=== PATIENT | female | born 1960 | race African-American/Black ===

== ENCOUNTER 2016-10-28 01:22 | Emergency (ER) | payer OTHER ==
--- NOTE | 2016-10-28 02:04 | ED Physician Documentation ---
General Adult - HISTORIAN Historian: patient, child (son) - HPI Stated Complaint: shaky, sweaty Chief Complaint: General Adult Additional Information: Four days of episodes of feeling drowsy, sweaty, hyper, all at the same time. Episodes last several minutes. Three such episodes today. The last one woke her from sleep at about 0100 tody. Had second cataract surgery OD on 10/20. On prednisolone eye gtts since. Had this same med with first cataract surgery. Has been out of Lyrica for a week; this med was initiated 3-4 months ago. Her son is concerned that she takes too many medications. She has been taking oxycodone and hydrocodone simultyaneously, unti ltwo days ago when she stopped the hydrocone. Says her blood sugars have not changed: 130-160. - ROS CONST: sweating - PAST HX Past History: hypertension, other (HLD, fibromyalgia, osteoarthritis, gout.) Other History: diabetes Type 2 Surgeries/Procedures: other (cataracts) Allergies/Adverse Reactions: Allergies Allergy/AdvReac Type Severity Reaction Status Date / Time No Known Allergies Allergy Verified 10/28/16 01:47 Home Medications: Ambulatory Orders Medication Instructions Recorded Atorvastatin Calcium [Lipitor] 40 mg PO DAILY 11/11/12 Carvedilol [Coreg] 12.5 mg PO DAILY 11/11/12 Insulin NPH/Reg [Humulin 70-30 0 unit SUBCUT DIRECTED 11/11/12 Vial] Lisinopril [Zestril] 40 mg PO DAILY 11/11/12 Meloxicam 15 mg PO DAILY 11/11/12 Metformin HCl [Glucophage Xr] 500 mg PO BID 11/11/12 Milnacipran HCl [Savella] 50 mg PO DIRECTED 11/11/12 Omeprazole [Prilosec] 20 mg PO DIRECTED 11/11/12 Sertraline HCl [Zoloft] 50 mg PO QD 11/11/12 Tramadol HCl [Rybix Odt] 50 mg PO DIRECTED 11/11/12 Allopurinol [Zyloprim] 100 mg PO QD #30 tablet 05/21/16 Methylprednisolone [Medrol] 4 mg PO DAILY #1 tab.ds.pk 05/21/16 - SOCIAL HX Smoking History: non-smoker - FAMILY HX Family History: No - VITAL SIGNS Vital Signs: Vital Signs Temp Pulse Resp BP Pulse Ox 184/88 05/21/16 14:53 - REVIEWED ASSESSMENTS Nursing Assessment Reviewed: Yes Vitals Reviewed: Yes General Adult Physical Exam - PHYSICAL EXAM GENERAL APPEARANCE: no distress EENT: eye inspection normal (left. OD photosensitive and she squints. ), ENT inspection normal NECK: normal inspection, supple RESPIRATORY: no resp distress, breath sounds normal CVS: reg rate & rhythm, heart sounds normal, no murmur RECTAL: deferred BACK: other (movements w/o pain) SKIN: warm/dry, normal color EXTREMITIES: no evidence of injury NEURO: CN's nml as tested, motor nml, sensation nml Discharge Clincal Impression: Medication adverse effect Additional Instructions: Talk to your doctors about your medication concerns, tomorrow. Home Medications: Ambulatory Orders Atorvastatin Calcium [Lipitor] 40 mg PO DAILY 11/11/12 Carvedilol [Coreg] 12.5 mg PO DAILY 11/11/12 Insulin NPH/Reg [Humulin 70-30 Vial] 0 unit SUBCUT DIRECTED 11/11/12 Lisinopril [Zestril] 40 mg PO DAILY 11/11/12 Meloxicam 15 mg PO DAILY 11/11/12 Metformin HCl [Glucophage Xr] 500 mg PO BID 11/11/12 Milnacipran HCl [Savella] 50 mg PO DIRECTED 11/11/12 Omeprazole [Prilosec] 20 mg PO DIRECTED 11/11/12 Sertraline HCl [Zoloft] 50 mg PO QD 11/11/12 Tramadol HCl [Rybix Odt] 50 mg PO DIRECTED 11/11/12 Allopurinol [Zyloprim] 100 mg PO QD #30 tablet 05/21/16 Methylprednisolone [Medrol] 4 mg PO DAILY #1 tab.ds.pk 05/21/16 Condition: Good Decision to Admit: NO Decision Time: 02:02
[2016-10-28 03:38] VITALS: BP 164/85
== END 2016-10-28 02:16 | disposition home or self-care (01) ==
LOC: ED 01:22
DX: T50.905A Adverse effect of unspecified drugs, medicaments and biological substances, initial encounter (principal); R53.1 Weakness; I10 Essential (primary) hypertension; E78.5 Hyperlipidemia, unspecified; E11.9 Type 2 diabetes mellitus without complications
CPT/HCPCS: 99282; 99283

== ENCOUNTER 2016-11-19 16:22 | Emergency (ER) | payer OTHER ==
[2016-11-19] MEDS ORDERED: DEXTROSE 50% 50 ML DISP.SYRIN IVP ONE ×3 (16:29→18:22)
[2016-11-19] MEDS: DEXTROSE 50% 50 ML DISP.SYRIN IVP ONE ×2 (16:50→17:30)
[2016-11-19 16:58] LABS: BASOPHILS % 0.1 (0.0-1.5); EOSINOPHILS % 3.2 % (0.0-6.8); LYMPHOCYTES # 0.6 # k/uL (0.6-4.0); MEAN CORPUSCULAR HEMOGLOBIN 24.8 pg (28.0-34.0); MONOCYTES # 0.2 # k/uL (0.0-0.9); NEUTROPHILS # 4.4 # k/uL (1.4-7.7)
[2016-11-19] MEDS ORDERED: DEXTROSE 5 %-0.45 % NACL 1,000 ML IV SCH (17:00)
[2016-11-19 17:18] LABS: eGFR (African) > 60; eGFR (Non-African) > 60
--- NOTE | 2016-11-19 18:13 | ED Physician Documentation ---
General Adult - HISTORIAN Historian: patient, paramedics - HPI Stated Complaint: Hypoglycemia Chief Complaint: General Adult Onset: hours Timing: worse Further Comments: yes (56 year old female patient found confused with decreased LOC by her son who was coming to fix her sink today. EMS called - BS 26 on arrival 25mg D50 IV given; BS up to 75 in route to ER. On arrival BS 38 - D50 25mg IV given and D51/2 started) - ROS CONST: no problems (Patient unable to answer all questions due to altered mental status and hypoglycemia) EYES/ENT: none CVS/RESP: none GI/: none MS/SKIN/LYMPH: none NEURO/PSYCH: denies: headache, fainting, dizziness, tingling, numbness, difficulty walking, difficulty with speech, anxiety, depression, other - PAST HX Past History: hypertension Other History: diabetes Type 2, other (morbid obesity, IDDM, HLD, OA, Gout, Fibromyalgia) Surgeries/Procedures: other (Right cataract) Allergies/Adverse Reactions: Allergies Allergy/AdvReac Type Severity Reaction Status Date / Time No Known Allergies Allergy Verified 10/28/16 01:47 Home Medications: Ambulatory Orders Medication Instructions Recorded Atorvastatin Calcium [Lipitor] 40 mg PO DAILY 11/11/12 Insulin NPH/Reg [Humulin 70-30 0 unit SUBCUT DIRECTED 11/11/12 Vial] Omeprazole [Prilosec] 20 mg PO DIRECTED 11/11/12 Allopurinol [Zyloprim] 100 mg PO QD #30 tablet 05/21/16 Allopurinol [Allopurinol] 300 mg PO BID 10/28/16 Amitriptyline HCl [Elavil] 75 mg PO HS 10/28/16 Atorvastatin Calcium [Atorvastatin 40 mg PO BID 10/28/16 Calcium] Chlorthalidone [Thalitone] 50 mg PO D 10/28/16 Losartan Potassium [Cozaar] 100 mg PO D 10/28/16 Methocarbamol [Robaxin-750] 750 mg PO Q6 10/28/16 Metoclopramide HCl [Metoclopramide 5 mg PO QID 10/28/16 HCl Odt] Moxifloxacin HCl [Vigamox] 1 drop EACHEYE BID 10/28/16 Neomy Sulf/Polymyxin B Sulfate 1 drop EACHEYE 6XDAY 10/28/16 [Neomy-Polymyxin B 40 mg/ml Amp] Omeprazole [Prilosec] 20 mg PO BID 10/28/16 Oxycodone HCl/Acetaminophen 1 tab PO Q8 PRN 10/28/16 [Oxycodone-Acetaminophen 10-325] Prednisolone Acetate [Pred Forte] 1 drop EACHEYE 6XDAY 10/28/16 Sennosides [Senna] 8.6 mg PO HS 10/28/16 Tizanidine HCl [Zanaflex] 2 mg PO Q8 10/28/16 - SOCIAL HX Smoking History: non-smoker - FAMILY HX Family History: No - VITAL SIGNS Vital Signs: Vital Signs Temp Pulse Resp BP Pulse Ox 98 F 79 20 159/67 98 11/19/16 16:25 11/19/16 16:25 11/19/16 16:25 11/19/16 16:25 11/19/16 18:00 - REVIEWED ASSESSMENTS Nursing Assessment Reviewed: Yes Vitals Reviewed: Yes Progress - Progress Progress: Old records reviewed; hyperglycemia noted >450 on last ER visit; last HGB 10.2 1655 BS up to 85, 12.5mg D50 given, speech improved, slightly slurred 1730 Patient unable to answer questions, speech slurred - BS 46 12.5mg IV D50 given, increased D51/2 to 200cc/hr 1745 Plan of care discussed with family - recommended transfer to higher level of care with PCU or ICU for close glucose monitoring. Family prefers [place]. Patient able to drink 4 oz apple juice and eat 20% of meal tray. [address] Bishop to PCU. 1825 BS 48 - 25mg D50 IV given, increased D51/2 to 350 ml/hr ED Results Lab/Radiology - Lab Results Lab Results: Lab Results 11/19/16 11/19/16 16:50 16:50 WBC 5.30 K/ul K/ul (4.00-12.00) RBC 3.72 M/ul L M/ul (3.90-5.20) Hgb 9.2 g/dL L g/dL (12.0-16.0) Hct 29.8 % L % (34.5-46.5) MCV 80.1 fl fl (80.0-100.0) MCH 24.8 pg L pg (28.0-34.0) MCHC 31.0 g/dL g/dL (30.0-36.0) RDW 16.0 % H % (11.3-14.3) Plt Count 275 K/mm3 K/mm3 (130-400) Neut % (Auto) 82.6 % H % (39.0-79.0) Lymph % (Auto) 10.7 % L % (16.0-50.0) Maverick % (Auto) 3.0 % % (0.0-11.0) Eos % (Auto) 3.2 % % (0.0-6.8) Baso % (Auto) 0.1 (0.0-1.5) Neut # 4.4 # k/uL # k/uL (1.4-7.7) Lymph # 0.6 # k/uL # k/uL (0.6-4.0) Maverick # 0.2 # k/uL # k/uL (0.0-0.9) Eos # 0.2 # k/uL # k/uL (0.0-0.6) Baso # 0.0 # k/uL # k/uL (0.0-0.5) Reactive Lymphs % 0.5 % % (0.0-5.0) Reactive Lymphs # 0.0 # k/uL # k/uL (0.0-0.8) Sodium 141 mmol/L mmol/L (136-145) Potassium 3.3 mmol/L L mmol/L (3.5-5.0) Chloride 106 mmol/L mmol/L (98-110) Carbon Dioxide 34 mmol/L H mmol/L (20-32) BUN 16 mg/dL mg/dL (10-26) Creatinine 1.0 mg/dL mg/dL (0.4-1.5) Estimated Creat Clear 201 Est GFR ( Amer) > 60 (60 - ) Est GFR (Non-Af Amer) > 60 (60 - ) Glucose 73 mg/dL mg/dL (70-99) Calcium 9.9 mg/dL mg/dL (8.5-10.5) Total Bilirubin 0.3 mg/dL mg/dL (0.2-1.2) AST 19 U/L U/L (0-41) ALT 14 U/L U/L (0-45) Alkaline Phosphatase 114 U/L U/L (46-116) Total Protein 7.1 g/dL g/dL (6.0-8.5) Albumin 3.9 g/dL g/dL (3.0-5.5) - Orders Orders: ED Orders Category Date Time Status Continuous Pulse Oximetry Q30M Care 11/19/16 16:29 Active Further Nursing Orders 1T Care 11/19/16 17:[address] Saline Lock/IV NOW Care 11/19/16 16:29 Completed CBC/PLATELET/DIFF Stat Lab 11/19/16 16:50 Completed CMP Stat Lab 11/19/16 16:50 Completed UA W/MICRO IF INDICATED Stat Lab 11/19/16 16:29 Ordered Chem Sticks Med 11/19/16 16:20 Ordered 1 each PRN PRN Dextrose 5 %-0.45 % NaCl [D51/2Ns] 1,000 ml Med 11/19/16 17:00 Ordered IV Q8H Dextrose 50% [Dextrose 50%-Water Syringe] Med 11/19/16 16:56 Discontinued 12.5 ml IVP NOW ONE Dextrose 50% [Dextrose 50%-Water Syringe] Med 11/19/16 17:40 Discontinued 12.5 ml IVP NOW ONE Dextrose 50% [Dextrose 50%-Water Syringe] Med 11/19/16 16:29 Discontinued 25 ml IVP NOW ONE Oxygen Daily Oxygen 11/19/16 16:30 Completed General Adult Physical Exam - PHYSICAL EXAM GENERAL APPEARANCE: moderate distress EENT: YFN, dry mucous membranes, other (right eye with edema and scant drainage ) NECK: normal inspection RESPIRATORY: no resp distress, chest non-tender, breath sounds normal CVS: reg rate & rhythm, heart sounds normal, equal pulses, no murmur, no gallop , PMI nml, no JVD, no friction rub, 24 ABDOMEN: soft, no organomegaly, normal bowel sounds, no abdominal bruit, no distension, other (morbid obesity) SKIN: normal color, warm/dry, NR, INT, PAL, DR EXTREMITIES: non-tender, normal range of motion, no evidence of injury, edema (3 +) NEURO: oriented X3, disoriented (on arrival and with episodes of hypoglycemia), speech/cognition abnml (slurred with episodes of hypoglycemia), other (no signs of CVA, no focal weakness. ) Discharge Clincal Impression: Hypoglycemia, IDDM (insulin dependent diabetes mellitus), Hypokalemia Altered mental status Qualifiers: Altered mental status type: unspecified Qualified Code(s): R41.82 - Altered mental status, unspecified Anemia Qualifiers: Anemia type: unspecified type Qualified Code(s): D64.9 - Anemia, unspecified Referrals: [Primary Care Provider] - 2 Days Home Medications: Ambulatory Orders Atorvastatin Calcium [Lipitor] 40 mg PO DAILY 11/11/12 Insulin NPH/Reg [Humulin 70-30 Vial] 0 unit SUBCUT DIRECTED 11/11/12 Omeprazole [Prilosec] 20 mg PO DIRECTED 11/11/12 Allopurinol [Zyloprim] 100 mg PO QD #30 tablet 05/21/16 Allopurinol [Allopurinol] 300 mg PO BID 10/28/16 Amitriptyline HCl [Elavil] 75 mg PO HS 10/28/16 Atorvastatin Calcium [Atorvastatin Calcium] 40 mg PO BID 10/28/16 Chlorthalidone [Thalitone] 50 mg PO D 10/28/16 Losartan Potassium [Cozaar] 100 mg PO D 10/28/16 Methocarbamol [Robaxin-750] 750 mg PO Q6 10/28/16 Metoclopramide HCl [Metoclopramide HCl Odt] 5 mg PO QID 10/28/16 Moxifloxacin HCl [Vigamox] 1 drop EACHEYE BID 10/28/16 Neomy Sulf/Polymyxin B Sulfate [Neomy-Polymyxin B 40 mg/ml Amp] 1 drop EACHEYE 6XDAY 10/28/16 Omeprazole [Prilosec] 20 mg PO BID 10/28/16 Oxycodone HCl/Acetaminophen [Oxycodone-Acetaminophen 10-325] 1 tab PO Q8 PRN Prednisolone Acetate [Pred Forte] 1 drop EACHEYE 6XDAY 10/28/16 Sennosides [Senna] 8.6 mg PO HS 10/28/16 Tizanidine HCl [Zanaflex] 2 mg PO Q8 10/28/16 Condition: Serious Disposition: 02 XFER SHT-TRM HOSP Decision to Admit: NO Decision Time: 18:25
[2016-11-19 18:27] LABS: APPEARANCE,URINE Slightly Cloudy (CLEAR); COLOR,URINE Yellow (YELLOW); OCCULT BLOOD,URINE Trace-lysed (NEGATIVE); PH URINE 8.5 (5.0 - 8.0); UROBILINOGEN URINE 0.2 Eu (0.2-1.0)
[2016-11-19 18:46] VITALS: BP 166/99
== END 2016-11-19 18:35 | disposition short-term general hospital (02) ==
LOC: ED 16:22
DX: E10.649 Type 1 diabetes mellitus with hypoglycemia without coma (principal)
CPT/HCPCS: 36600; 80053; 81002; 85025; 96374; 96376; 99283; 99284; S5010

== ENCOUNTER 2017-02-05 15:09 | Outpatient (CLI) | payer OTHER | END 2017-02-05 15:10 | LOC: LAB 15:09 | PROVIDERS: ATTEND Family Medicine | DX: D64.9 Anemia, unspecified (principal) | CPT/HCPCS: 36415; 86885; 86900; 86901; 86920 ==

== ENCOUNTER 2017-02-06 07:50 | Outpatient (CLI) | payer OTHER ==
[2017-02-06] MEDS ORDERED: diphenhydrAMINE HCL 50 MG/ML VIAL ONE (08:10)
[2017-02-06] MEDS ORDERED: SALINE FLUSH 10 ML DISP.SYRIN IVF ONE ×2 (08:10→12:35)
[2017-02-06] MEDS ORDERED: ACETAMINOPHEN 500 MG TABLET ONE ×2 (08:10→14:11)
[2017-02-06] MEDS ORDERED: 0.9 % SODIUM CHLORIDE 500 ML IV ONE (08:10)
[2017-02-06] MEDS ORDERED: FUROSEMIDE 20 MG/2 ML VIAL ONE (12:35)
== END 2017-02-06 07:52 ==
LOC: OUT 07:50
PROVIDERS: ATTEND Family Medicine
DX: D64.89 Other specified anemias (principal)
CPT/HCPCS: 36430; J1200; J1940; J7050; P9010; P9040

== ENCOUNTER 2017-03-12 12:54 | Emergency (ER) | payer OTHER ==
[2017-03-12 13:12] VITALS: BP 104/51
[2017-03-12] MEDS: AMOXICILLIN 500 MG CAPSULE PO ONE (14:00)
[2017-03-12] MEDS: KETOROLAC TROMETHAMINE 60 MG/2 ML VIAL IM ONE (14:00)
[2017-03-12] MEDS: oxyCODONE/ACETAMINOPHEN 5/325 TABLET PO ONE (14:00)
--- NOTE | 2017-03-12 14:43 | ED Physician Documentation ---
Sore Throat/Dental Pain - HISTORIAN Historian: patient - HPI Stated Complaint: Dental pain/left ear pain Chief Complaint: Dental Pain Additional Information: x 3 days, acute onset Onset: days ago (3) Context: Dental Caries Associated Symptoms: L ear pain Worsened By: heat, cold Relieved By: nothing Further Comments: no - ROS CONST: no problems CVS/RESP: none GI/: denies: problems urinating, nausea, vomiting MS/SKIN/LYMPH: denies: muscle aches, rash, leg swelling NEURO/PSYCH: none - PAST HX Past History: none Other History: other (dm, hypertension, sickle cell trait) Immunizations: referred to PCP Allergies/Adverse Reactions: Allergies Allergy/AdvReac Type Severity Reaction Status Date / Time No Known Allergies Allergy Verified 10/28/16 01:47 Home Medications: Ambulatory Orders Medication Instructions Recorded Atorvastatin Calcium [Lipitor] 40 mg PO DAILY 11/11/12 Insulin NPH/Reg [Humulin 70-30 0 unit SUBCUT DIRECTED 11/11/12 Vial] Omeprazole [Prilosec] 20 mg PO DIRECTED 11/11/12 Allopurinol [Zyloprim] 100 mg PO QD #30 tablet 05/21/16 Allopurinol [Allopurinol] 300 mg PO BID 10/28/16 Amitriptyline HCl [Elavil] 75 mg PO HS 10/28/16 Atorvastatin Calcium [Atorvastatin 40 mg PO BID 10/28/16 Calcium] Chlorthalidone [Thalitone] 50 mg PO D 10/28/16 Losartan Potassium [Cozaar] 100 mg PO D 10/28/16 Methocarbamol [Robaxin-750] 750 mg PO Q6 10/28/16 Metoclopramide HCl [Metoclopramide 5 mg PO QID 10/28/16 HCl Odt] Moxifloxacin HCl [Vigamox] 1 drop EACHEYE BID 10/28/16 Neomy Sulf/Polymyxin B Sulfate 1 drop EACHEYE 6XDAY 10/28/16 [Neomy-Polymyxin B 40 mg/ml Amp] Omeprazole [Prilosec] 20 mg PO BID 10/28/16 Oxycodone HCl/Acetaminophen 1 tab PO Q8 PRN 10/28/16 [Oxycodone-Acetaminophen 10-325] Prednisolone Acetate [Pred Forte] 1 drop EACHEYE 6XDAY 10/28/16 Sennosides [Senna] 8.6 mg PO HS 10/28/16 Tizanidine HCl [Zanaflex] 2 mg PO Q8 10/28/16 - SOCIAL HX Smoking History: non-smoker Alcohol Use: none Drug Use: none - FAMILY HX Family History: No - VITAL SIGNS Vital Signs: Vital Signs Temp Pulse Resp BP Pulse Ox 99.9 F H 87 22 104/51 94 03/12/17 13:04 03/12/17 13:04 03/12/17 13:04 03/12/17 13:04 03/12/17 13:04 - REVIEWED ASSESSMENTS Nursing Assessment Reviewed: Yes Vitals Reviewed: Yes Progress - Results/Orders Results/Orders: no testing ordered - Progress Progress: Pt. given amoxicillin 500 mg p.o., toradol 60 mg im and a percocet 5/325 p.o. in er Critical Care Note - Critical Care Note Total Time (mins): 0 ED Results Lab/Radiology - Lab Results Lab Results: none ordered - Radiology Radiology Impressions: none ordered - Orders Orders: ED Orders Category Date Time Status Amoxicillin [Amoxil] Med 03/12/17 13:52 Discontinued 500 mg PO NOW ONE Ketorolac Tromethamine [Toradol] Med 03/12/17 13:52 Discontinued 60 mg IM NOW ONE oxyCODONE HCL/ACETAMINOPHEN [Percocet 5-325 mg Tablet] Med 03/12/17 13:52 Discontinued 1 each PO NOW ONE Dental Pain Physical Exam - EXAM General Appearance: alert, moderate distress Head/Neck: head nml inspection, trachea midline, no lymphadenopathy, mandibular swelling (L) Eyes: eyes nml inspection, PERRL. No: pain of sinuses Mouth/Throat: lips nml, voice nml, no drooling, no air way problems, dental tenderness (left 1st molar, upper jaw) Ear/Nose: nml inspection Respiratory: no resp. distress, breath sounds nml CVS: reg. rate & rhythm, heart sounds nml Abdomen: soft, no organomegaly, normal bowel sounds Extremities: non-tender, nml ROM Skin: warm/dry, normal color Neuro/Psych: weakness Discharge Clincal Impression: Pain, dental Referrals: [Primary Care Provider] - 2 Days Home Medications: Ambulatory Orders Atorvastatin Calcium [Lipitor] 40 mg PO DAILY 11/11/12 Insulin NPH/Reg [Humulin 70-30 Vial] 0 unit SUBCUT DIRECTED 11/11/12 Omeprazole [Prilosec] 20 mg PO DIRECTED 11/11/12 Allopurinol [Zyloprim] 100 mg PO QD #30 tablet 05/21/16 Allopurinol [Allopurinol] 300 mg PO BID 10/28/16 Amitriptyline HCl [Elavil] 75 mg PO HS 10/28/16 Atorvastatin Calcium [Atorvastatin Calcium] 40 mg PO BID 10/28/16 Chlorthalidone [Thalitone] 50 mg PO D 10/28/16 Losartan Potassium [Cozaar] 100 mg PO D 10/28/16 Methocarbamol [Robaxin-750] 750 mg PO Q6 10/28/16 Metoclopramide HCl [Metoclopramide HCl Odt] 5 mg PO QID 10/28/16 Moxifloxacin HCl [Vigamox] 1 drop EACHEYE BID 10/28/16 Neomy Sulf/Polymyxin B Sulfate [Neomy-Polymyxin B 40 mg/ml Amp] 1 drop EACHEYE 6XDAY 10/28/16 Omeprazole [Prilosec] 20 mg PO BID 10/28/16 Oxycodone HCl/Acetaminophen [Oxycodone-Acetaminophen 10-325] 1 tab PO Q8 PRN Prednisolone Acetate [Pred Forte] 1 drop EACHEYE 6XDAY 10/28/16 Sennosides [Senna] 8.6 mg PO HS 10/28/16 Tizanidine HCl [Zanaflex] 2 mg PO Q8 10/28/16 Comments: discharged with scripts for amoxicillin, meloxicam, percocet and 2% viscous lidocaine, f/u with dentist Condition: Stable Disposition: 01 HOME, SELF-CARE Decision to Admit: NO Decision Time: 14:30
== END 2017-03-12 14:32 | disposition home or self-care (01) ==
LOC: ED 12:54
DX: K08.89 Other specified disorders of teeth and supporting structures (principal)
CPT/HCPCS: A9270; J1885; 96372; 99283

== ENCOUNTER 2019-07-04 13:04 | Emergency (ER) | payer OTHER ==
[2019-07-04] MEDS ORDERED: POTASSIUM CHLORIDE 20 MEQ TABLET.ER ONE (16:45)
[2019-07-04] MEDS ORDERED: ONDANSETRON HCL/PF 4 MG/ 2ML VIAL ONE (16:45)
[2019-07-04] MEDS ORDERED: cefTRIAXone SODIUM 1 GM INJ ONE (16:45)
[2019-07-04] MEDS ORDERED: HYDROmorphone HCL/PF 1 MG/ML VIAL ONE (16:45)
[2019-07-04] MEDS ORDERED: 0.9 % SODIUM CHLORIDE 100 ML IV.SOLN IV ONE (16:45)
[2019-07-04] MEDS ORDERED: NORMAL SALINE 1,000 ML IV.SOLN IV ONE (16:45)
[2019-07-14 08:38] LABS: eGFR (Non-African) 36
[2019-07-14 08:39] LABS: ANISOCYTOSIS 1+ (NEGATIVE); BASOPHILS % 0.3 % (0.0-1.5); BASOPHILS % 2 % (0-2); NEUTROPHILS # 7.7 # k/uL (1.4-7.7); SEGMENTED NEUTROPHILS % 87 % (39-79)
[2019-07-14 09:54] LABS: APPEARANCE,URINE CLOUDY (CLEAR); COLOR,URINE YELLOW (YELLOW); OCCULT BLOOD,URINE 2+ (NEGATIVE)
--- NOTE | 2019-07-26 15:06 | Diagnostic Imaging Report ---
ASHELY BROWN [facility] [id number] [facility] [address] [place] [address]. [id number] Report Submission Date: Jul 04, 2019 3:00:14 PM CDT Patient Study Name: MOISE CADET Date: Jul 04, 2019 2:25:39 PM CDT Modality Type: DX Gender: F Description: ABDOMEN 1VIEW : 60 Institution: [facility] Physician: ASHELY BROWN Exam: Single-view abdomen. History: Abdominal pain. No previous studies are available for comparison. The examination is limited to the left upper quadrant of the abdomen. Scattered loops of bowel gas in the left upper quadrant of the abdomen are noted. Surgical clips are noted indicating previous cholecystectomy. Impression: Nonspecific bowel gas pattern. Electronically signed on Jul 04, 2019 3:00:14 PM CDT by: Lex Vega Exam: Single-view abdomen. History: Abdominal pain. No previous studies are available for comparison. Scattered loops of bowel gas in the left upper quadrant of the abdomen are noted. Surgical clips are noted indicating previous cholecystectomy. Impression: Nonspecific bowel gas pattern. Addendum electronically signed by Lex Vega on July 04, 2019 3:16:20 PM CDT [facility]
== END 2019-07-04 18:50 ==
LOC: ED 13:04
DX: N39.0 Urinary tract infection, site not specified (principal); K59.00 Constipation, unspecified
CPT/HCPCS: 74018; 80053; 81002; 83690; 83880; 85025; 87086; 87186; 99283; A9270; J0696; J1170; J2405; J7030; S1016

== ENCOUNTER 2019-07-27 11:26 | Emergency (ER) | payer OTHER ==
--- NOTE | 2019-07-27 11:49 | ED Physician Documentation ---
General Adult - HISTORIAN Historian: patient - HPI Stated Complaint: dizzy, ear pain Chief Complaint: General Adult Onset: days ago Timing: still present Severity: moderate Further Comments: yes (Pt is a 59 yo female with c/o b/l ear pain, sob, b/l calf pain. Pt says that she has fallen 3 time in the past day, though she has not injured herself. Pt has been wheezy, but, she says, she does not have hx of COPD. Pt has hx CHF and DM and is on insulin.) - ROS CONST: weakness EYES/ENT: other (b/l ear pain) CVS/RESP: shortness of breath GI/: none MS/SKIN/LYMPH: other (decubitus ulcers on breasts) NEURO/PSYCH: dizziness - PAST HX Past History: other (CHF, chronic pain, Depression, DM, Falls, GERD, HLD, HTN, Gout, ? hx sickle cell) Surgeries/Procedures: , cholecystectomy Allergies/Adverse Reactions: Allergies Allergy/AdvReac Type Severity Reaction Status Date / Time No Known Allergies Allergy Verified 07/27/19 11:46 Home Medications: Ambulatory Orders Medication Instructions Recorded Amitriptyline HCl [Elavil] 75 mg PO HS 10/28/16 Atorvastatin Calcium 40 mg PO HS 10/28/16 Losartan Potassium [Cozaar] 100 mg PO D 10/28/16 Metoclopramide HCl [Metoclopramide 5 mg PO TID 10/28/16 HCl Odt] Omeprazole [Prilosec] 20 mg PO BID 10/28/16 Sennosides [Senna] 8.6 mg PO HS 10/28/16 Allopurinol [Zyloprim] 300 mg PO QD 07/27/19 Aspirin EC [Ecotrin] 81 mg PO DAILY 07/27/19 Docusate Sodium [Colace] 100 mg PO BID 07/27/19 Duloxetine HCl 30 mg PO DAILY 07/27/19 Ergocalciferol (Vitamin D2) 1 cap PO WEEK 07/27/19 [Vitamin D-2] Furosemide [Lasix] 40 mg PO DAILY 07/27/19 Insulin Glargine,Hum.rec.anlog 30 unit SQ AM 07/27/19 [Lantus] Morphine Sulfate [Morphine Sulfate 30 mg PO BID 07/27/19 ER] Naloxegol Oxalate [Movantik] 25 mg PO DAILY 07/27/19 Oxycodone HCl/Acetaminophen 1 tab PO Q12H PRN 07/27/19 [Oxycodone-Acetaminophen 10-325] amLODIPine BESYLATE [Norvasc] 10 mg PO DAILY 07/27/19 - SOCIAL HX Smoking History: non-smoker - FAMILY HX Family History: No - VITAL SIGNS Vital Signs: Vital Signs Temp Pulse Resp BP Pulse Ox 104/51 03/12/17 13:04 - REVIEWED ASSESSMENTS Nursing Assessment Reviewed: Yes Vitals Reviewed: Yes Progress - Progress Progress: NS 1 L IVF bolus NS 200 cc/hr Transfer to [facility], Dr. Martinez Rhabdomyolysis, CHF with elevated pro-BNP, acute renal failure, Troponin elevated above normal, - EKG/XRAY/CT EKG: rhythm (Sinus tachycardia, XT=467; non-specific T-wave abnormality.) XRAY: chest (No acute pulmonary process.) General Adult Physical Exam - PHYSICAL EXAM GENERAL APPEARANCE: moderate distress (obese) EENT: other (dry mm) NECK: normal inspection, supple RESPIRATORY: no resp distress, chest non-tender, other (distant breath sounds) CVS: reg rate & rhythm, heart sounds normal, other (distant heart sounds) ABDOMEN: soft, no organomegaly, normal bowel sounds BACK: normal inspection, no CVA tenderness SKIN: warm/dry, other (decubitus ulcer under L breast, 5 cm diameter; 2 cm superficial decub R breast) EXTREMITIES: normal range of motion, no evidence of injury, edema, other (b/l calf soreness) NEURO: oriented X3, motor nml, sensation nml Discharge Clincal Impression: CHF, Elevated troponin, decubitus ulcers on breasts, Rhabdomyolysys Acute renal failure Qualifiers: Acute renal failure type: unspecified Qualified Code(s): N17.9 - Acute kidney failure, unspecified Referrals: SIXTO VILLAFANA [Primary Care Provider] - Condition: Stable Disposition: XFER SHT-TRM HOSP Decision to Admit: NO Decision Time: 14:42
[2019-07-27 12:26] LABS: BASOPHILS % 0.3 % (0.0-1.5); NEUTROPHILS # 8.8 # k/uL (1.4-7.7)
[2019-07-27] MEDS: 0.9 % SODIUM CHLORIDE 1,000 ML IV ONE (12:40)
--- NOTE | 2019-07-27 13:04 | Diagnostic Imaging Report ---
PATIENT MR#: [id number] PATIENT PATIENT NAME: MOISE CADET DATE OF : 1960 REFERRING PHYSICIAN: Bryson Arriola EXAM DATE: 07/27/2019 ACCESSION NUMBER: [id number] EXAM DESCRIPTION: CHEST 1VIEW Examination: Portable chest History: Evaluate lungs Comparison exam: None provided. Findings: Single view of the chest demonstrates a normal cardiac and mediastinal silhouette. Elevated right hemidiaphragm. Lung tobias without focal infiltrate. No blunting of the costophrenic margins. Articul ar degenerative changes. Impression: No acute pulmonary process. Read by: Dr. Kirill Moore Transcribed by: Transcribed Date: Electronically signed by: Dr. Kirill Moore Date signed: 07/27/2019 1:03:52 PM
[2019-07-27] MEDS: 0.9 % SODIUM CHLORIDE 1,000 ML IV SCH (14:36)
[2019-07-27 16:36] VITALS: BP 154/73
== END 2019-07-27 15:00 | disposition short-term general hospital (02) ==
LOC: ED 11:26
DX: M62.82 Rhabdomyolysis (principal); I50.9 Heart failure, unspecified; N17.9 Acute kidney failure, unspecified; L89.899 Pressure ulcer of other site, unspecified stage
CPT/HCPCS: 71045; 80053; 81002; 82550; 82553; 83880; 84484; 85025; 87070; 87186; 93005; 96360; 99284; J7030; S1016

== ENCOUNTER 2019-08-24 15:34 | Emergency (ER) | payer OTHER ==
[2019-08-24 16:00] LABS: BASOPHILS % 0.3 % (0.0-1.5); NEUTROPHILS # 8.5 # k/uL (1.4-7.7)
[2019-08-24] MEDS ORDERED: 0.9 % SODIUM CHLORIDE 1,000 ML IV ONE ×3 (16:00→17:38)
[2019-08-24 16:11] LABS: eGFR (Non-African) 7
--- NOTE | 2019-08-24 16:24 | ED Physician Documentation ---
General Adult - HISTORIAN Historian: patient - HPI Stated Complaint: weakness and dizziness Chief Complaint: General Adult Additional Information: Patient presents to ED with complaints of dizziness and weakness which started this morning. Patient has a history of insulin dependent DM, CHF, renal failure, HTN and chronic pain with narcotic dependence. Patient had similar symptoms in June 2019 when she had acute renal failure. At that time she had Creatinine of 6.60 and was transferred to [facility] for further treatment. Patient is on lasix and losartan for heart failure and admits to not drinking much water. Onset: hours (12) Timing: still present Severity: moderate - ROS CONST: denies: fever EYES/ENT: denies: problems with vision CVS/RESP: shortness of breath GI/: denies: vomiting, nausea MS/SKIN/LYMPH: none NEURO/PSYCH: dizziness - PAST HX Past History: CHF, renal disease Other History: diabetes Type 2 Surgeries/Procedures: none Allergies/Adverse Reactions: Allergies Allergy/AdvReac Type Severity Reaction Status Date / Time No Known Allergies Allergy Verified 08/24/19 15:53 Home Medications: Ambulatory Orders Medication Instructions Recorded Amitriptyline HCl [Elavil] 75 mg PO HS 10/28/16 Atorvastatin Calcium 40 mg PO HS 10/28/16 Losartan Potassium [Cozaar] 100 mg PO D 10/28/16 Metoclopramide HCl [Metoclopramide 5 mg PO TID 10/28/16 HCl Odt] Omeprazole [Prilosec] 20 mg PO BID 10/28/16 Sennosides [Senna] 8.6 mg PO HS 10/28/16 Allopurinol [Zyloprim] 300 mg PO QD 07/27/19 Aspirin EC [Ecotrin] 81 mg PO DAILY 07/27/19 Docusate Sodium [Colace] 100 mg PO BID 07/27/19 Duloxetine HCl 30 mg PO DAILY 07/27/19 Ergocalciferol (Vitamin D2) 1 cap PO WEEK 07/27/19 [Vitamin D-2] Furosemide [Lasix] 40 mg PO DAILY 07/27/19 Insulin Glargine,Hum.rec.anlog 30 unit SQ AM 07/27/19 [Lantus] Morphine Sulfate [Morphine Sulfate 30 mg PO BID 07/27/19 ER] Naloxegol Oxalate [Movantik] 25 mg PO DAILY 07/27/19 Oxycodone HCl/Acetaminophen 1 tab PO Q12H PRN 07/27/19 [Oxycodone-Acetaminophen 10-325] amLODIPine BESYLATE [Norvasc] 10 mg PO DAILY 07/27/19 - SOCIAL HX Smoking History: non-smoker Alcohol Use: none Drug Use: none - FAMILY HX Family History: No - VITAL SIGNS Vital Signs: Vital Signs Temp Pulse Resp BP Pulse Ox 98.8 F 124 H 26 H 102/39 88 L 08/24/19 15:34 08/24/19 15:34 08/24/19 15:34 08/24/19 15:34 08/24/19 15:34 - REVIEWED ASSESSMENTS Nursing Assessment Reviewed: Yes Vitals Reviewed: Yes Progress - Progress Progress: [address] Waters, she will accept patient to [place] for further evaluation and treatment. - EKG/XRAY/CT Comments: 1545 Sinus Tachy 120 bpm, NO ST elevation. ED Results Lab/Radiology - Lab Results Lab Results: Lab Results 08/24/19 08/24/19 15:53 15:53 WBC 10.00 K/ul K/ul (4.00-12.00) RBC 4.47 M/ul M/ul (3.90-5.20) Hgb 11.4 g/dL L g/dL (11.5-16.0) Hct 35.8 % % (34.5-46.5) MCV 80.0 fl fl (80.0-100.0) MCH 25.6 pg L pg (28.0-34.0) MCHC 32.0 g/dL g/dL (30.0-36.0) RDW 14.8 % H % (11.3-14.3) Plt Count 530 K/mm3 H K/mm3 (130-400) Neut % (Auto) 85.4 % H % (39.0-79.0) Lymph % (Auto) 9.7 % L % (16.0-50.0) Posey % (Auto) 3.5 % % (0.0-11.0) Eos % (Auto) 1.1 % % (0.0-6.8) Baso % (Auto) 0.3 % % (0.0-1.5) Neut # (Auto) 8.5 # k/uL H # k/uL (1.4-7.7) Lymph # (Auto) 1.0 # k/uL # k/uL (0.6-4.0) Posey # (Auto) 0.4 # k/uL # k/uL (0.0-0.9) Eos # (Auto) 0.1 # k/uL # k/uL (0.0-0.6) Baso # (Auto) 0.0 # k/uL # k/uL (0.0-0.5) Sodium 135 mmol/L L mmol/L (137-145) Potassium 4.4 mmol/L mmol/L (3.5-5.1) Chloride 91 mmol/L L mmol/L (98-107) Carbon Dioxide 26 mmol/L mmol/L (22-30) Anion Gap 22.4 BUN 37 mg/dL H mg/dL (7-17) Creatinine 6.09 mg/dL H mg/dL (0.52-1.04) Est GFR ( Amer) 9 L (60 - ) Est GFR (Non-Af Amer) 7 L (60 - ) Glucose 206 mg/dL H mg/dL (74-106) Calcium 9.3 mg/dL mg/dL (8.4-10.2) Total Bilirubin 0.9 mg/dL mg/dL (0.2-1.3) AST 35 U/L U/L (15-46) ALT 13 U/L U/L (0-35) Alkaline Phosphatase 134 U/L H U/L (38-126) Total Protein 7.8 g/dL g/dL (6.3-8.2) Albumin 3.8 g/dL g/dL (3.5-5.0) - Radiology Radiology Impressions: Report Submission Date: Aug 24, 2019 5:16:10 PM [employer]UNGE[employer] Patient Study Name: MOISE CADET Date: Aug 24, 2019 4:24:50 PM [employer]UNGE[employer] Modality Type: DX Gender: F Description: CHEST 1VIEW : 60 Institution: [facility] Physician: MAYA ARCE Chest, aP portable History: Shortness of breath Findings: No infiltrate, effusion or pneumothorax is present. Heart size, mediastinum and pulmonary vascularity are normal. Impression: No active pulmonary disease. Electronically signed on Aug 24, 2019 5:16:10 PM DUNGEON MASTER by: Oneal Rowell - Orders Orders: ED Orders Category Date Time Status Place IV Lock 1T Care 08/24/19 15:[address] IV Lock 1T Care 08/24/19 16:18 Ordered BLOOD CULTURE Stat Lab 08/24/19 Ordered CBC/PLATELET/DIFF Routine Lab 08/24/19 15:53 Completed CMP Routine Lab 08/24/19 15:53 Completed CREATINE KINASE Routine Lab 08/24/19 Ordered NT BNP Stat Lab 08/24/19 15:53 Received TROPONIN I Stat Lab 08/24/19 15:53 Received UA W/MICRO IF INDICATED Routine Lab 08/24/19 16:23 Ordered 0.9 % Sodium Chloride [Normal Saline] 1,000 ml Med 08/24/19 16:00 Discontinued IV .STK-MED 0.9 % Sodium Chloride [Normal Saline] 1,000 ml Med 08/24/19 16:03 Active IV Q1H EKG WITH COMPARISON Stat Ther 08/24/19 Ordered General Adult Physical Exam - PHYSICAL EXAM GENERAL APPEARANCE: no distress EENT: YFN NECK: supple RESPIRATORY: no resp distress, other (diminished breath sounds bilaterally) CVS: tachycardia ABDOMEN: soft, non-tender, other (obese) BACK: normal inspection, no CVA tenderness SKIN: warm/dry, normal color EXTREMITIES: non-tender, edema (+1 lower extremity edema bilaterally confined to ankle/feet) NEURO: oriented X3, mood/affect nml Discharge Clincal Impression: Acute renal failure Qualifiers: Acute renal failure type: unspecified Qualified Code(s): N17.9 - Acute kidney failure, unspecified Referrals: SIXTO VILLAFANA [Primary Care Provider] - 2 Days Condition: Stable Disposition: 02 XFER SHT-TRM HOSP Decision to Admit: NO Date of Decison to Admit: 08/24/19 Decision Time: 17:48
--- NOTE | 2019-08-24 17:20 | Diagnostic Imaging Report ---
PATIENT MR#: [id number] PATIENT PATIENT NAME: MOISE CADET DATE OF : 1960 REFERRING PHYSICIAN: Judy Mitchell EXAM DATE: 08/24/2019 ACCESSION NUMBER: [id number] EXAM DESCRIPTION: CHEST 1VIEW Chest, aP portable History: Shortness of breath Findings: No infiltrate, effusion or pneumothorax is present. Heart size, mediastinum and pulmonary v ascularity are normal. Impression: No active pulmonary disease. Read by: Dr. Oneal Rowell Transcribed by: Transcribed Date: Electronically signed by: Dr. Oneal Rowell Date signed: 08/24/2019 5:19:37 PM
[2019-08-24 19:07] VITALS: BP 120/53
== END 2019-08-24 18:30 | disposition short-term general hospital (02) ==
LOC: ED 15:34
DX: N17.9 Acute kidney failure, unspecified (principal)
CPT/HCPCS: 71045; 80053; 82550; 83880; 84484; 85025; 87040; 87186; 93005; 96360; 96361; 99284; J7030; S1016